=== PATIENT | male | born 1960 | race African-American/Black ===

== ENCOUNTER 2017-12-18 13:53 | Emergency (ER) | payer MEDICAID ==
[~2017-12-18] VITALS: Ht 180.3 cm; Wt 86.2 kg
[2017-12-18] MEDS ORDERED: NKM (14:09)
[2017-12-18 14:15] VITALS: BP 145/95
[2017-12-18] MEDS ORDERED: ZOFRAN4 M3 ORAL (14:32)
--- NOTE | 2017-12-18 14:32 | Emergency Room Report ---
History of Present Illness General Chief Complaint: Abdominal Pain Source: Patient Present Illness HPI 58-year-old male patient presents to ER complaining of diarrhea for the past 5 days. Patient reports that "I think I have food poisoning". Patient reports that he ate a meal on Friday and immediately began to feel upset stomach and nauseous. Reports that he began taking laxatives at that time to pass the food out of the system. Patient reports she has been taking laxatives every day since that time, states last taken today at 11 AM. Patient reports no blood in stool. Patient denies vomiting. Patient denies recent travel outside states. Patient reports no contacts with similar symptoms. denies fever, chest pain, shortness of breath, dysuria, hematuria. Reports normal bowel movement since that time. Allergies: Coded Allergies: No Known Allergies (Unverified , 12/18/17) Patient History Past Medical History: see triage record Reviewed Nursing Documentation: PMH: Agreed; PSxH: Agreed Nursing Documentation-PMH Past Medical History: No Stated History Review of Systems All Other Systems: negative except mentioned in HPI Physical Exam Vital Signs Date Time Temp Pulse Resp B/P (MAP) Pulse Ox O2 Delivery O2 Flow Rate FiO2 12/18/17 14:04 97.7 104 16 145/95 96 Room Air 97.7 Sp02 EP Interpretation: reviewed, normal General Appearance: well appearing, no apparent distress, alert, GCS 15, non- toxic Head: normocephalic, atraumatic Respiratory: lungs clear, normal breath sounds, no rhonchi, no respiratory distress, no accessory muscle use, no wheezing, speaking full sentences Cardiovascular #1: regular rate, rhythm, no edema Gastrointestinal: non tender, soft, no mass, non-distended, no guarding, no rebound Musculoskeletal: back normal, digits/nails normal, gait/station normal, normal range of motion, non-tender Neurologic: alert, oriented x3, responsive, motor strength/tone normal, sensory intact Psychiatric: mood/affect normal Skin: no rash Medical Decision Making PA Attestation Dr. Vargas is my supervising Physician whom patient management has been discussed with. Diagnostic Impression: Primary Impression: Diarrhea ER Course Pt. presents to the ED c/o diarrhea from food poisoning. Ddx considered but are not limited to viral syndrome, gastritis, enteritis, food poisoning, viral syndrome, medication use. Vital signs: are WNL, pt. is afebrile at discharge. ORDERS: none required at this time, the diagnosis is clinical ED COURSE: Patient informed to not take laxatives prophylactically because you think you are having food poisoning. Instructed to stop taking laxatives. No fever, no blood in stool, no recent travel or hospitalizations, does not require abx treatment at this time. Patient informed that providing more antibiotics can cause further complications due to decreased gut roddy from continued diarrhea symptoms. No signs of dehydration, moist mucus membranes. Patient reports eating and drinking normally, reports some symptoms return when eating food. Instructed on BRAT diet: bananas, rice, apple sauce, toast. Symptoms will recur unless give GI time to rest and recover. Drink fluids to stay hydrated. informed patient main concern with diarrhea as dehydration. Take [id number] Pepto-Bismol to relieve symptoms. Take Tylenol for relief symptoms. Will provide Zofran. Do not attempt to induce vomiting. DISCHARGE: Rx provided for Zofran Patient instructed on BRAT diet. Patient instructed to remain hydrated, drink plenty of fluids. Patient questions asked and answered. Patient states understanding and agreement to treatment plan. At this time pt. is stable for d/c to home. patient rested comfortably no acute distress nontoxic appearing, talking without difficulty. Patient is resting comfortably, laughing, in no acute distress, nontoxic appearing. Will provide printed patient care instructions, and any necessary prescriptions. Care plan and follow up instructions have been discussed with the patient prior to discharge. Patient instructed to followup with PCP in 3-5 days. Patient reports understanding and agreement to treatment plan. Patient questions asked and answered. ER precautions given; patient instructed to return to ER for new or worsening of symptoms including but not limited to fever, intractable vomiting, severe abdominal pain, blood in stool. - Please note that this Emergency Department Report was dictated using [employer] technology software, occasionally this can lead to erroneous entry secondary to interpretation by the dictation equipment. Last Vital Signs Date Time Temp Pulse Resp B/P (MAP) Pulse Ox O2 Delivery O2 Flow Rate FiO2 12/18/17 14:15 97.7 16 145/95 96 Room Air 97.7 12/18/17 14:04 104 Disposition: HOME, SELF-CARE Condition: Stable Scripts Ondansetron* (ZOFRAN*) 4 Mg Tablet 4 MG ORAL Q6H PRN for Nausea & Vomiting, #5 TAB Prov: Rodney Rodgers 12/18/17 Patient Instructions: Diarrhea, Adult, [id number], Food Choices to Help Relieve Diarrhea, Adult, Food Poisoning, [id number] Additional Instructions: Followup with primary care provider in 3 -5 days. discuss referral to GI and need for colonoscopy. Avoid spicy foods, avoid dairy foods. BRAT diet: bananas, rice, apple sauce, toast. Take medications as directed. Take Tylenol and Pepto-Bismol [id number] as needed for symptoms. Do not take laxatives. Patient questions asked and answered. ER precautions given, patient instructed to return to ER immediately for any new or worsening of symptoms. Rodney Rodgers December 18, 2017 14:32
[2017-12-18 14:48] VITALS: BP 145/95
== END 2017-12-18 14:50 | disposition home or self-care (01) ==
LOC: EDBD 14:31 → EMR 14:31
DX: R19.7 Diarrhea, unspecified (principal)
CPT/HCPCS: 99283